=== PATIENT | female | born 1960 | race Caucasian/White ===

== ENCOUNTER 2018-12-15 16:47 | Inpatient (IN) | payer BC, MEDICARE ==
[~2018-12-15] VITALS: Ht 154.9 cm; Wt 52.3 kg
[2018-12-15] MEDS ORDERED: ESZO3 PO (20:07)
[2018-12-15] MEDS ORDERED: SERT100T12 PO (20:07)
[2018-12-15] MEDS ORDERED: MIRT30 PO (20:07)
[2018-12-15 20:51] VITALS: BP 120/87
[2018-12-15] MEDS: ZOLPIDEM TARTRATE 10 MG TABLET PO PRN (21:07)
[2018-12-15] MEDS: LORazepam 1 MG TABLET PO PRN (23:29)
[2018-12-16 00:25] VITALS: BP 122/88
[2018-12-16] MEDS: HALOPERIDOL 5 MG TABLET PO PRN ×2 (00:57→06:25)
[2018-12-16] MEDS: LORazepam 1 MG TABLET PO PRN ×3 (03:55→11:07)
[2018-12-16] MEDS ORDERED: DENTURE ADHESIVE 68 GM CREAM DT PRN (05:15)
[2018-12-16 08:09] LABS: BASOPHILS % (AUTO) 0.5 % (0.0-2.0); EOSINOPHILS % (AUTO) 3.6 % (1.0-6.0); HEMATOCRIT 32.2 % (36-46); HEMOGLOBIN 11.3 g/dL (12.0-16.0); HEMOGLOBIN A1C 5.1 % (4.5-6.2); LYMPHOCYTES # (AUTO) 1.7 K/uL (1.0-4.8); LYMPHOCYTES % (AUTO) 27.2 % (22.0-44.0); MEAN CORPUSCULAR HEMOGLOBIN 31.1 pg (26.0-34.0); MEAN CORPUSCULAR HGB CONC 35.1 G/dL (31.0-37.0); MEAN CORPUSCULAR VOLUME 89 fL (80-100); MONOCYTES # (AUTO) 0.5 K/uL (0.1-1.0); MONOCYTES % (AUTO) 7.3 % (2.0-9.0); NEUTROPHILS # (AUTO) 3.9 K/uL (1.8-7.7); NEUTROPHILS % (AUTO) 61.4 % (40.0-70.0); PLATELET COUNT (AUTO) 294 K/uL (150-450); RED BLOOD CELL COUNT(AUTO) 3.64 MIL/uL (4.00-5.20); RED CELL DISTRIBUTION WIDTH 14.8 % (11.5-14.5)
[2018-12-16 08:13] VITALS: BP 103/57
[2018-12-16 08:20] LABS: ALANINE AMINOTRANSFERASE 30 U/L (12-78); ALBUMIN 3.3 g/dL (3.4-5.0); ALKALINE PHOSPHATASE 75 U/L (46-116); ANION GAP 9 mmol/L (8-16); ASPARTATE AMINOTRANSFERASE 27 U/L (15-37); BILIRUBIN,TOTAL 0.3 mg/dL (0.1-1.0); CARBON DIOXIDE 24 mmol/L (22-29); CHLORIDE 110 mmol/L (98-107); CHOLESTEROL 151 mg/dL (131-200); CREATININE 0.79 mg/dL (0.60-1.30); FREE T4 (FREE THYROXINE) 1.18 ng/dL (0.76-1.46); GLOMERULAR FILTR. RATE CALC > 60 mL/min (>60); GLUCOSE,RANDOM 88 mg/dL (70-110); HDL CHOLESTEROL 51 mg/dL (40-60); LDL CHOL (CALC.) 79 mg/dL (0-130); POTASSIUM 3.4 mmol/L (3.5-5.1); SODIUM SERUM 143 mmol/L (136-145); THYROID STIMULATING HORMONE 1.27 uIU/mL (0.36-3.74); TOTAL PROTEIN, SERUM 6.7 g/dL (6.4-8.2); TRIGLYCERIDES 106 mg/dL (15-150); UREA NITROGEN, BLOOD 7 mg/dL (7-18)
[2018-12-16] MEDS ORDERED: GuaiFENesin/D-METHORPHAN [SUGAR-FREE] 200-20MG/10 ML SYRUP UDCUP PO PRN (12:30)
[2018-12-16] MEDS ORDERED: DOCUSATE SODIUM 100 MG CAPSULE PO PRN (12:30)
[2018-12-16] MEDS ORDERED: MAGNESIUM HYDROXIDE SUSPENSION 30 ML UDCUP PO PRN (12:30)
[2018-12-16] MEDS ORDERED: PETROLATUM,WHITE 71 GM JELLY TP PRN (12:30)
[2018-12-16] MEDS ORDERED: ACETAMINOPHEN 325 MG TABLET PO PRN (12:30)
[2018-12-16] MEDS ORDERED: ONDANSETRON HCL 4 MG TABLET PO PRN (12:30)
[2018-12-16] MEDS ORDERED: NICOTINE 14 MG/24 HOUR PATCH TD PRN (12:30)
[2018-12-16] MEDS ORDERED: MAG HYDROX/AL HYDROX/SIMETH ES 30 ML SUSPENSION UDCUP PO PRN (12:30)
[2018-12-16] MEDS ORDERED: ALBUTEROL SULFATE HFA 90 MCG/PUFF 8 GM INHALER IH PRN (12:30)
[2018-12-16] MEDS ORDERED: CloNIDine HCL 0.1 MG TABLET PO PRN (12:30)
[2018-12-16] MEDS ORDERED: LOPERAMIDE HCL 2 MG CAPSULE PO PRN (12:30)
[2018-12-16 12:39] VITALS: BP 112/62
[2018-12-16] MEDS: GABAPENTIN 400 MG CAPSULE PO SCH ×3 (12:39→21:05)
[2018-12-16 16:20] VITALS: BP 117/76
[2018-12-16] MEDS: HydrOXYzine PAMOATE 25 MG CAPSULE PO SCH (17:18)
[2018-12-16] MEDS: QUEtiapine FUMARATE 200 MG TABLET PO SCH (21:00)
[2018-12-16] MEDS: MIRTAZAPINE 15 MG TABLET PO SCH (21:05)
[2018-12-17 06:10] VITALS: BP 123/74
[2018-12-17] MEDS: IBUPROFEN 400 MG TABLET PO PRN ×2 (06:13→19:41)
[2018-12-17] MEDS ORDERED: POTASSIUM CHLORIDE 20 MEQ ER TABLET PO ONE (06:45)
[2018-12-17] MEDS ORDERED: POTASSIUM CHLORIDE 20 MEQ ER TABLET ONE (06:51)
[2018-12-17 07:49] LABS: BASOPHILS % (AUTO) 1.3 % (0.0-2.0); EOSINOPHILS % (AUTO) 3.6 % (1.0-6.0); HEMATOCRIT 33.1 % (36-46); HEMOGLOBIN 11.4 g/dL (12.0-16.0); LYMPHOCYTES # (AUTO) 1.8 K/uL (1.0-4.8); LYMPHOCYTES % (AUTO) 32.7 % (22.0-44.0); MEAN CORPUSCULAR HGB CONC 34.5 G/dL (31.0-37.0); MEAN CORPUSCULAR VOLUME 90 fL (80-100); MONOCYTES # (AUTO) 0.5 K/uL (0.1-1.0); MONOCYTES % (AUTO) 9.1 % (2.0-9.0); NEUTROPHILS % (AUTO) 53.3 % (40.0-70.0); PLATELET COUNT (AUTO) 298 K/uL (150-450); RED BLOOD CELL COUNT(AUTO) 3.68 MIL/uL (4.00-5.20); RED CELL DISTRIBUTION WIDTH 14.9 % (11.5-14.5)
[2018-12-17 08:10] LABS: ALANINE AMINOTRANSFERASE 24 U/L (12-78); ALBUMIN 3.1 g/dL (3.4-5.0); ALKALINE PHOSPHATASE 69 U/L (46-116); ANION GAP 10 mmol/L (8-16); ASPARTATE AMINOTRANSFERASE 20 U/L (15-37); BILIRUBIN,TOTAL 0.4 mg/dL (0.1-1.0); CALCIUM, TOTAL 8.9 mg/dL (8.8-10.5); CARBON DIOXIDE 22 mmol/L (22-29); CHLORIDE 112 mmol/L (98-107); CHOL/HDL RATIO 2.8 (3.9-5.7); CHOLESTEROL 143 mg/dL (131-200); GLOMERULAR FILTR. RATE CALC > 60 mL/min (>60); GLUCOSE,RANDOM 140 mg/dL (70-110); HDL CHOLESTEROL 51 mg/dL (40-60); HEMOGLOBIN A1C 5.1 % (4.5-6.2); LDL CHOL (CALC.) 73 mg/dL (0-130); POTASSIUM 3.1 mmol/L (3.5-5.1); SODIUM SERUM 144 mmol/L (136-145); THYROID STIMULATING HORMONE 0.57 uIU/mL (0.36-3.74); TOTAL PROTEIN, SERUM 6.3 g/dL (6.4-8.2); TRIGLYCERIDES 95 mg/dL (15-150); UREA NITROGEN, BLOOD 10 mg/dL (7-18)
[2018-12-17 08:15] VITALS: BP 123/66
[2018-12-17] MEDS: GABAPENTIN 400 MG CAPSULE PO SCH ×4 (09:13→20:02)
[2018-12-17] MEDS: HydrOXYzine PAMOATE 25 MG CAPSULE PO SCH ×2 (09:13→16:28)
[2018-12-17 16:08] VITALS: BP 113/74
[2018-12-17] MEDS: LORazepam 1 MG TABLET PO PRN (17:06)
[2018-12-17] MEDS: HALOPERIDOL 5 MG TABLET PO PRN (18:47)
[2018-12-17] MEDS: MIRTAZAPINE 15 MG TABLET PO SCH (20:02)
[2018-12-17] MEDS: QUEtiapine FUMARATE 200 MG TABLET PO SCH (20:02)
[2018-12-17] MEDS: ZOLPIDEM TARTRATE 10 MG TABLET PO PRN (20:42)
[2018-12-18 01:05] VITALS: BP 129/80
[2018-12-18 03:54] VITALS: BP 134/86
[2018-12-18] MEDS: LORazepam 1 MG TABLET PO PRN (03:54)
[2018-12-18] MEDS: GABAPENTIN 400 MG CAPSULE PO SCH (08:03)
[2018-12-18] MEDS: HydrOXYzine PAMOATE 25 MG CAPSULE PO SCH (08:03)
[2018-12-18] MEDS ORDERED: QUET200T PO (08:39)
[2018-12-18] MEDS ORDERED: GABA-533 PO (08:40)
[2018-12-18] MEDS ORDERED: HYDR50CA10 PO (08:40)
[2018-12-18 08:57] VITALS: BP 108/64
== END 2018-12-18 11:30 | disposition home or self-care (01) | DRG 885 ==
LOC: B2X 19:54
PROVIDERS: ADMIT Psychiatry & Neurology Psychiatry; ATTEND Psychiatry & Neurology Psychiatry
DX: F33.2 Major depressive disorder, recurrent severe without psychotic features (principal); E87.6 Hypokalemia; E03.9 Hypothyroidism, unspecified; D64.9 Anemia, unspecified; F10.10 Alcohol abuse, uncomplicated; F12.90 Cannabis use, unspecified, uncomplicated; R45.87 Impulsiveness; F41.9 Anxiety disorder, unspecified; F95.2 Tourette's disorder; M19.90 Unspecified osteoarthritis, unspecified site; K59.00 Constipation, unspecified; F19.10 Other psychoactive substance abuse, uncomplicated; Z71.51 Drug abuse counseling and surveillance of drug abuser; Z81.8 Family history of other mental and behavioral disorders
CPT/HCPCS: 83036; 84439; 84443; 87081